=== PATIENT | female | born 1965 | race Caucasian/White ===

== ENCOUNTER 2019-04-26 03:46 | Inpatient (IN) ==
[2019-04-19 09:47] LABS: BASO# 0.03 X1000 (0.0-0.2); BASO% 0.5 % (0.0-0.8); EOS# 0.09 X1000 (0.0-0.7); EOS% 1.5 % (0.0-10.0); HEMATOCRIT 43.6 % (37.0-47.0); HEMOGLOBIN 14.6 g/dL (12.0-16.0); IMM GRAN# 0.02 X1000 (0.0-0.04); IMM GRAN% 0.3 % (0.0-0.5); LYMPH# 1.91 X1000 (1.2-3.4); LYMPH% 31.1 % (20.5-51.1); MCH 31.1 PG (27-31); MCHC 33.5 g/dL (33-37); MONO% 8.1 % (1.7-9.3); MPV 10.7 FL (7.4-10.4); NEUT# 3.59 X1000 (1.4-6.5); NEUT% 58.5 % (42.2-75.2); PLT 226 X1000 (130-400); RBC 4.69 XMIL (4.2-5.4); WBC 6.14 X1000 (4.8-10.8)
[2019-04-26] MEDS ORDERED: REGLAN ONE (05:58)
[2019-04-26] MEDS ORDERED: LR 1,000 ML ONE ×2 (05:58→09:40)
[2019-04-26] MEDS ORDERED: PEPCID ONE (05:58)
[2019-04-26] MEDS ORDERED: KEFZOL 1 GM/D5W 1 GM/50 ML IVPB ONE (05:58)
[2019-04-26] MEDS ORDERED: FENTANYL ONE (06:06)
[2019-04-26] MEDS ORDERED: DIPRIVAN 1% ONE (06:06)
[2019-04-26] MEDS ORDERED: SODIUM CHLORIDE 0.9% 10 ML ONE ×2 (06:08→06:45)
[2019-04-26] MEDS ORDERED: NORCURON ONE ×2 (06:08→08:21)
[2019-04-26] MEDS ORDERED: XYLOCAINE-MPF 2% ONE (06:08)
[2019-04-26] MEDS ORDERED: QUELICIN (DOSE) ONE (06:08)
[2019-04-26] MEDS ORDERED: VERSED ONE (06:40)
[2019-04-26] MEDS ORDERED: ROBINUL ONE ×2 (06:42→08:50)
[2019-04-26] MEDS ORDERED: MARCAINE 0.25% ONE (06:44)
[2019-04-26] MEDS ORDERED: EXPAREL 1.3% ONE (06:45)
[2019-04-26] MEDS ORDERED: ZOFRAN ONE (08:48)
[2019-04-26] MEDS ORDERED: EPHEDRINE ONE (08:48)
[2019-04-26] MEDS ORDERED: DECADRON ONE (08:48)
[2019-04-26] MEDS ORDERED: NEOSTIGMINE ONE ×2 (08:52→09:07)
[2019-04-26 08:53] LABS: URINE SOURCE CATH
[2019-04-26 08:55] LABS: BILIRUBIN URINE NEGATIVE (NEGATIVE); BLOOD URINE NEGATIVE (NEGATIVE); COLOR YELLOW; GLUCOSE URINE NEGATIVE (NEGATIVE); KETONE URINE NEGATIVE (NEGATIVE); LEUKOCYTES URINE NEGATIVE (NEGATIVE); NITRITE URINE NEGATIVE (NEGATIVE); PROTEIN URINE NEGATIVE (NEGATIVE); SP GRAVITY URINE 1.007; TURBIDITY URINE CLEAR (CLEAR); UR EPITHELIAL CELLS <10 /HPF (<10); URINE BACTERIA NEGATIVE /HPF; URINE RBC <10 /HPF (<10); URINE WBC <10 /HPF (<10); UROBILINOGEN URINE NORMAL (NORMAL)
[2019-04-26] MEDS: DILAUDID ONE ×4 (09:43→10:19)
--- NOTE | 2019-04-26 10:03 | OPERATIVE NOTE ---
PROCEDURE DATE: 04/26/2019 PREOPERATIVE DIAGNOSIS: Distal pancreatic mass. POSTOPERATIVE DIAGNOSIS: Distal pancreatic mass. PROCEDURES PERFORMED: 1. Open distal pancreatectomy. 2. Open splenectomy. SURGEON: Aiden Jimenez M.D. SYNTHETIC CHEMIST: Dr. Ball. Dr. Ball assisted with the entirety of the case. His presence was crucial to completion of the case. ANESTHESIA: General endotracheal. INTRAOPERATIVE FINDINGS: Lesion noted in the tail of the pancreas, very close to the hilum of the spleen, intimately connected to the splenic artery and splenic vein, not amenable to spleen- sparing pancreatectomy. COMPLICATIONS: None at the time of this dictation. EBL: 900 mL. SPECIMENS REMOVED: Distal pancreas and spleen. DRAINS: A 10 flat STARR x2. BRIEF HISTORY: A 53-year-old female who presented with CT scan that showed distal pancreatic mass. We offered her several options, including endoscopic ultrasound with biopsy, transfer to [facility] for surgery, or definitive surgery here. She elected to go with definitive surgery here. The risks, benefits, and alternatives were discussed, risks including, but not limited to bleeding, infection, risk of need for further resections, risk for pancreatic duct leak, risk for splenectomy were discussed. She voiced understanding. We did get her the post- splenectomy vaccines 2 weeks prior to the surgery, just in case we had to remove the spleen. She tolerated those well. She wanted to proceed with the procedure. DESCRIPTION OF PROCEDURE: After informed consent was obtained, the patient was brought to the operative theatre and transferred to the operating table, placed in the supine position. General endotracheal anesthesia was then performed without complication. A formal time- out was then performed, confirming the patient and procedure. All were in agreement. Anesthesia did a TAP block without complications. We then prepped and draped the abdomen in a sterile fashion. After the time-out, we made a standard midline incision in the upper aspect of the abdomen to enter into the abdomen. Upon entering, we identified the stomach and the colon. We did not identify any other lesions or masses in the abdomen by direct visualization or palpation. We made a window to enter into the lesser sac, and entered into the lesser sac with electrocautery. We identified the spleen and the pancreas. We identified the lesion. We started first by mobilizing the spleen medially by taking down the attachments both with a combination of blunt dissection and electrocautery. We got to the hilum. We then started taking down the short gastrics with the LigaSure. We mobilized the short gastrics, and completely transected them all the way up to the stomach. We then found an area on the body of the pancreas that was 5 cm away in vivo from the edge of the mass. We started making a window under the pancreas, using a combination of right angle and blunt dissection. We placed a vessel loop around it. We then isolated the splenic artery, doubly tied it, and ligated it. We then isolated the splenic vein, and also doubly tied and ligated it. We then used a TA stapler with 60 load with thick load across the pancreas itself, transected it. We did not easily see the pancreatic duct, but in the area we thought it most likely was, we placed U-stitches with silk. We then continued the blunt dissection posteriorly to the pancreas, all the way down to the spleen. There were some fibrotic attachments to the retroperitoneum. We took some of the retroperitoneal fat with it. We did mobilize it off the splenic flexure of the colon and off the kidney. It did not look like we had any injury to those structures. We mobilized it fully until we freed it up, and then passed it off to Pathology. I updated Pathology about the findings noted on in vivo. We then placed several gauze in the abdomen, and waited. We irrigated out the abdomen copiously, waited, and packed the abdomen, and did not see any active bleeding. We then placed two drains, one from the left upper quadrant, going straight down to the pancreas, the other one in the right upper quadrant, going under the stomach and by the pancreas. Both were secured in place in the standard fashion. We then closed the abdomen after irrigating it thoroughly, closed it with a running loop PDS starting on either side. We then closed the skin with a running Monocryl. The patient tolerated the procedure well and will be transferred back to recovery room and then to the floor. cc: MD JOSE RAMON Gaffney
[2019-04-26] MEDS: NORCO-5 PO PRN ×3 (12:36→21:36)
[2019-04-26] MEDS: ZOFRAN IV PRN ×2 (12:46→21:36)
[2019-04-26] MEDS: LR 1,000 ML IV SCH (12:51)
[2019-04-26] MEDS: PERIDEX MT SCH (21:36)
[2019-04-27] MEDS: ZOFRAN IV PRN ×6 (01:13→23:46)
[2019-04-27] MEDS: NORCO-5 PO PRN ×6 (01:13→23:45)
[2019-04-27] MEDS: HEPARIN SUBQ SCH ×3 (05:51→23:46)
[2019-04-27] MEDS: PROTONIX PO SCH ×2 (05:53→08:07)
[2019-04-27] MEDS: PERIDEX MT SCH ×2 (08:10→23:45)
[2019-04-27] MEDS: LR 1,000 ML IV SCH (08:10)
[2019-04-27] MEDS: THYROID PO SCH (08:11)
[2019-04-28] MEDS: PROTONIX PO SCH ×2 (04:57→06:28)
[2019-04-28] MEDS: ZOFRAN IV PRN ×4 (04:57→19:40)
[2019-04-28] MEDS: NORCO-5 PO PRN ×3 (04:57→19:40)
[2019-04-28] MEDS: HEPARIN SUBQ SCH ×2 (09:50→17:42)
[2019-04-28] MEDS: PERIDEX MT SCH (09:50)
[2019-04-28] MEDS: THYROID PO SCH (09:50)
[2019-04-28] MEDS: LR 1,000 ML IV SCH (09:51)
[2019-04-29] MEDS: NORCO-5 PO PRN ×4 (00:37→22:12)
[2019-04-29] MEDS: ZOFRAN IV PRN (00:38)
[2019-04-29] MEDS: PROTONIX PO SCH (06:08)
[2019-04-29] MEDS: LR 1,000 ML IV SCH (09:22)
[2019-04-29] MEDS: PERIDEX MT SCH ×3 (09:23→22:12)
[2019-04-29] MEDS: HEPARIN SUBQ SCH ×4 (09:23→23:05)
[2019-04-29] MEDS: THYROID PO SCH (09:24)
[2019-04-29] MEDS ORDERED: THYROID PO ONE (11:30)
--- NOTE | 2019-04-29 11:46 | GENERAL SURGERY PROGRESS NOTE ---
DATE: 04/29/2019 SUBJECTIVE: The patient seems to be doing okay. She is not sick to her stomach. She does complain of some back pain, but overall is doing fine. She has been ambulating. OBJECTIVE: Vital Signs: The patient is currently afebrile. Her vital signs are stable. General: No acute distress. Cardiovascular: Regular rate and rhythm. Lungs: Grossly clear. Abdomen: Soft. Appropriately tender. STARR drain is in place with minimal serosanguineous output. ASSESSMENT AND PLAN: A 53-year-old female, currently postoperative day #3 from distal pancreatectomy. Postoperative state. At this time, will advance to a regular diet Will actually check Kaden-Finley drains for amylase levels, and will monitor her closely. I think she is getting close to being able to be discharged. cc: Aiden Jimenez MD MTDD
[2019-04-29 12:04] LABS: BODY FLUID SOURCE JP DRAIN FLUID
[2019-04-29 12:21] LABS: AMYLASE BODY FLUID 1139 U/L
[2019-04-29 12:34] LABS: AMYLASE BODY FLUID 1719 U/L
--- NOTE | 2019-04-29 15:45 | GENERAL SURGERY PROGRESS NOTE ---
DATE: 04/27/2019 SUBJECTIVE: The patient seems to be doing okay. She is a little nauseated. OBJECTIVE: Vital Signs: The patient is currently afebrile. Her vital signs are stable. General: No acute distress. Cardiovascular: Regular rate and rhythm. Lungs: Clear. Abdomen: Soft, appropriately tender. STARR drain is in place with serosanguineous output. ASSESSMENT/PLAN: A 53-year-old female currently postoperative day number 1 from an open distal pancreatectomy and splenectomy. Postoperative state: At this time the patient seems to be doing okay. She is a little nauseated, so we will just keep her on her diet. She is on heparin and pain medicine and Protonix. Once she has less nausea, we will consider advancing her diet. cc: Aiden Jimenez MD
--- NOTE | 2019-04-29 16:20 | OPERATIVE NOTE ---
PROCEDURE DATE: 04/26/2019 Please note, previous attempt of this was made but during the transition over the new software it seems like it has been corrupted. PREOP DIAGNOSIS: Distal pancreatic mass. POSTOP DIAGNOSIS: Distal pancreatic mass. PROCEDURE: 1. Open distal pancreatectomy. 2. Open splenectomy. SURGEON: Aiden Jimenez MD. PAINT MIXER MACHINE: Dr. Ball. Dr. Ball assisted with the entirety of the case. His presence was crucial to completion the case. ANESTHESIA: General endotracheal. FINDINGS: Lesion noted in the tail of the pancreas very close to the hilum the spleen intimately connected to the splenic artery, splenic vein, not amenable to spleen sparing pancreatectomy. COMPLICATIONS: None at the time this dictation. ESTIMATED BLOOD LOSS: 900 mL. SPECIMENS REMOVED: Distal pancreas and spleen. DRAINS: Two flat STARR drains. BRIEF HISTORY: A 53-year-old female presenting with CT scan showed distal pancreatic mass. We offered her several options including endoscopic ultrasound with biopsy, transfer to [facility] for surgery and definitive surgery here. She elected to have definitive surgery here. Risks, benefits, alternatives of the procedure were discussed. Risks include but not limited to bleeding, infection, risk of need for further resection, risk of pancreatic duct leak, risk of splenectomy were discussed. She voiced understanding. We did get her post splenectomy vaccines 2 weeks prior to the surgery just in case we had to remove the spleen. She tolerated these well. She wanted proceed with surgery. DESCRIPTION OF PROCEDURE: After informed consent was obtained patient brought to the operative theatre, transferred operative table placed supine position. General endotracheal anesthesia was then performed without complication. A formal time-out was then performed confirming patient, date, procedure. All were in agreement. Anesthesia did a TAP block without complication. We then prepped and draped the abdomen in sterile fashion. After the time-out we made a standard midline incision in the upper aspect of the abdomen to enter into the abdomen. Upon entering the abdomen we identified the stomach, the colon. We felt over the liver did not find any masses identifying the carcinomatosis, did not find any other pathology. We made a window to enter into the lesser sac and entered into the lesser sac with electrocautery, identified the spleen, the pancreas, we identified the lesion. We started 1st by mobilizing the spleen medially by taking down the attachments both with combination of blunt dissection, electrocautery. We got to the hilum. We then started taking down the short gastrics with the LigaSure. We mobilized the short gastrics and complete transected them all the way to the hiatus. We then found the area in the body of the pancreas which is least 5 cm away in vivo from the edge of the mass. We started making a window into the pancreas using combination of a right angle for blunt dissection and electrocautery. We placed a vessel loop around it to isolate it. We then isolated the splenic artery, doubly tied it and ligated it. We then isolated the splenic vein and doubly tied and ligated it also. We used a TA stapler at 60 load with thick load across the pancreas itself and transected it. We did not easily identify the pancreatic duct but in the area we thought it most likely was we placed U-stitches with silk. We then continued to bluntly dissect the posterior aspect of the pancreas all the way down to the spleen. There was some fibrotic attachments to the retroperitoneum. We did take some retroperitoneal fat with it. We did mobilize it off the splenic flexure in the colon and off the kidney. We did look, it did not look like we had any injury to the structures. We fully mobilized until we freed it up then passed off to pathology, updated pathology about the findings noted on in vivo. We then placed several gauze the abdomen waited. We irrigated out the abdomen copiously, waited and packed the abdomen, did not see any active bleeding. We then placed 2 drains, 1 from the left upper quadrant straight down the pancreas, the other 1 in the right upper quadrant going under the stomach and to the pancreas. Both were secured in place in the standard fashion. We then closed the abdomen after removing all packing and closed it with a running loop PDS started on either side. We then closed the skin with a running Monocryl. The patient tolerated the procedure well, transferred back to recovery room and then to the floor. The family was updated. cc: Aiden Jimenez MD
[2019-04-30] MEDS: NORCO-5 PO PRN ×4 (01:45→22:02)
[2019-04-30] MEDS: THYROID PO SCH (06:29)
[2019-04-30] MEDS: PROTONIX PO SCH (06:29)
[2019-04-30] MEDS: HEPARIN SUBQ SCH ×2 (09:29→15:29)
[2019-04-30] MEDS: PERIDEX MT SCH ×2 (09:29→20:49)
--- NOTE | 2019-04-30 12:52 | GENERAL SURGERY PROGRESS NOTE ---
DATE: 04/28/2019 SUBJECTIVE: The patient seems to be doing okay. OBJECTIVE: Vital signs: The patient is currently afebrile. Her vital signs are stable. General exam: No acute distress. Cardiovascular: Regular rate and rhythm. Lungs are clear. Abdomen soft, appropriately tender. STARR drains in place with serosanguineous output and very minimal. ASSESSMENT AND PLAN: A 53-year-old female postop day #2 from distal pancreatectomy and splenectomy. Postoperative state at this time: Will advance to a full liquid diet. Will see how she does. Discussed with her that if she gets sick to back off her diet. She is on appropriate prophylaxis at this point. Will continue to monitor. Pathology is pending. cc: Aiden Jimenez MD MTDD
--- NOTE | 2019-04-30 13:37 | GENERAL SURGERY PROGRESS NOTE ---
DATE: 04/30/2019 Patient is currently postoperative day #4 from distal pancreatectomy. We did check her Kaden- Finley drains and the amylase was over 1000, although her output is pretty minimal. The characteristic of the fluid has changed slightly to maybe be more suggestive of pancreatic leak, but if it is, it is a very small pancreatic leak with less than 30 a day recorded out. At this point, we will keep her on a regular diet. We will watch her over the weekend and see what her Kaden-Finley drain output does. She will likely go home this weekend with her Kaden-Finley drains in place. Pathology is pending. cc: Aiden Jimenez MD
[2019-05-01] MEDS: NORCO-5 PO PRN ×3 (02:43→22:04)
[2019-05-01] MEDS: HEPARIN SUBQ SCH ×3 (06:07→21:58)
[2019-05-01] MEDS: THYROID PO SCH (06:08)
[2019-05-01] MEDS: PROTONIX PO SCH (06:08)
[2019-05-01] MEDS: PERIDEX MT SCH ×2 (09:44→21:58)
[2019-05-01] MEDS: MIRALAX PO SCH (10:33)
--- NOTE | 2019-05-01 18:44 | GENERAL SURGERY PROGRESS NOTE ---
DATE: 05/01/2019 SUBJECTIVE: Doing well. Having bowel function. No fevers. No tachycardia. Drain output appears to be 30 mL over the last 24 hours out of each drain thereabout. It is consistent with pancreas fluid. She is tolerating a regular diet with Ensure supplementation. She is on KVO fluids and prophylactic Lovenox. We will continue current management. Going forward, plan for maybe home tomorrow. I will let her shower today. cc: MD Aiden Santoyo MD
[2019-05-02] MEDS: NORCO-5 PO PRN (03:23)
[2019-05-02] MEDS: HEPARIN SUBQ SCH ×3 (06:45→22:03)
[2019-05-02] MEDS: PROTONIX PO SCH (06:45)
[2019-05-02] MEDS: THYROID PO SCH (06:45)
[2019-05-02] MEDS: PERIDEX MT SCH ×2 (09:07→22:03)
[2019-05-02] MEDS: MIRALAX PO SCH (09:08)
--- NOTE | 2019-05-02 13:51 | GENERAL SURGERY PROGRESS NOTE ---
DATE: 05/02/2019 SUBJECTIVE: She is packing her bags. She is in street clothes this morning. No fevers. No tachycardia. Bowels are functioning. Tolerating a diet. No pain. No fevers. OBJECTIVE: Blood pressure 116/74. Abdomen is soft, nontender, nondistended. ASSESSMENT AND PLAN: A 53-year-old female status post distal pancreatectomy. She does have some fluid that appears to be pancreatic in nature coming from her drains, but a very low volume. We will plan on letting her go home tomorrow to follow up with Dr. Jimenez this week for possible drain removal. cc: MD Aiden Santoyo MD
[2019-05-03] MEDS: THYROID PO SCH (06:23)
[2019-05-03] MEDS: HEPARIN SUBQ SCH (06:24)
[2019-05-03] MEDS: PROTONIX PO SCH (06:24)
--- NOTE | 2019-05-03 06:29 | DISCHARGE SUMMARY ---
ADMISSION DATE: 04/26/2019 DISCHARGE DATE: 05/03/2019 ADMITTING DIAGNOSIS: Pancreatic mass. DISCHARGE DIAGNOSIS: Status post open distal pancreatectomy and splenectomy. ADMITTING PHYSICIAN: Aiden Jimenez MD CONSULTATIONS: None. PROCEDURES: On 04/26/2019, patient underwent open distal pancreatectomy with open splenectomy. BRIEF HISTORY AND COURSE OF STAY: Patient is a 53-year-old female who was found incidentally to have a pancreatic mass. We discussed options. She wanted it removed. She was admitted, and underwent previously described procedure. It should be noted that she did get her post splenectomy vaccines 2 weeks prior to the procedure. Her postoperative course was initially uncomplicated. We left drains given the distal pancreatectomy. She was progressed over several days to a regular diet. She was having return of bowel function. We did note that she started having a small pancreatic duct leak, but is less than 30 mL out per day. She was advanced to a regular diet and tolerated it well. On the day of discharge, she was up and moving. Pain controlled. Up and ambulating without fever or discomfort. It was felt that she would be safe to be discharged home. We did give her instructions on STARR drain care. At this point, we will monitor her Kaden-Finley drain output as she gets up and mobilizes at home. If she still has continued output, may need to consider ERCP by the GI doctors to probably put a pancreatic stent. Otherwise, we will continue to monitor. DISPOSITION: Home. DISCHARGE CONDITION: Stable. HOME MEDICATIONS: The patient was given prescription for tramadol. FOLLOW-UP: Patient told to follow up with her primary care physician and myself. cc: Aiden Jimenez MD [facility]
--- NOTE | 2019-05-03 07:00 | GENERAL SURGERY PROGRESS NOTE ---
DATE: 05/03/2019 SUBJECTIVE: Patient seems to be doing well. No major issues. OBJECTIVE: Vital Signs: The patient is currently afebrile. Her vital signs are stable. General Examination: No acute distress. Cardiovascular: Regular rate and rhythm. Lungs: Grossly clear. Abdomen: Soft. Appropriately tender. Incision healing well. STARR drain is in place. Left side has more output than the right side and it seems to be more like pancreatic juice, although it is less than 30 mL out per day. ASSESSMENT AND PLAN: A 53-year-old female currently postoperative day #7 from open distal pancreatectomy and splenectomy. Postoperative state. At this time, the patient seems to be doing well. We will plan on discharge. cc: Aiden Jimenez MD
[2019-05-03 07:31] VITALS: BP 123/65
[2019-05-03] MEDS: MIRALAX PO SCH (08:46)
[2019-05-03] MEDS: PERIDEX MT SCH (08:46)
== END 2019-05-03 09:30 | disposition home or self-care (01) | DRG 406 ==
LOC: SURHOLD 03:46 → 4N 07:29
PROVIDERS: ADMIT Surgery; ATTEND Surgery
CPT/HCPCS: 81001; 82150; 85025; 86850; 86900; 86901; 86920; 88309; 88313; 94761; A9270; C9290; J0330; J0690; J1100; J1170; J1644; J2250; J2405; J3010; J7120; S0020

== ENCOUNTER 2019-05-15 22:20 | Inpatient (IN) ==
[2019-05-15 23:00] LABS: URINE SOURCE CLEAN CATCH
[2019-05-15 23:20] LABS: BILIRUBIN URINE NEGATIVE (NEGATIVE); BLOOD URINE NEGATIVE (NEGATIVE); COLOR YELLOW; GLUCOSE URINE NEGATIVE (NEGATIVE); KETONE URINE NEGATIVE (NEGATIVE); LEUKOCYTES URINE NEGATIVE (NEGATIVE); NITRITE URINE NEGATIVE (NEGATIVE); PROTEIN URINE NEGATIVE (NEGATIVE); SP GRAVITY URINE 1.014; TURBIDITY URINE CLEAR (CLEAR); UROBILINOGEN URINE NORMAL (NORMAL)
[2019-05-15 23:21] LABS: UR EPITHELIAL CELLS <10 /HPF (<10); URINE BACTERIA 1+ /HPF; URINE RBC <10 /HPF (<10); URINE WBC <10 /HPF (<10)
[2019-05-15 23:25] LABS: BASO# 0.04 X1000 (0.0-0.2); BASO% 0.2 % (0.0-0.8); EOS# 0.11 X1000 (0.0-0.7); EOS% 0.5 % (0.0-10.0); HEMATOCRIT 33.9 % (37.0-47.0); HEMOGLOBIN 11.1 g/dL (12.0-16.0); IMM GRAN# 0.06 X1000 (0.0-0.04); IMM GRAN% 0.3 % (0.0-0.5); LYMPH# 2.41 X1000 (1.2-3.4); LYMPH% 11.5 % (20.5-51.1); MCHC 32.7 g/dL (33-37); MCV 91.6 FL (81-99); MONO# 2.39 X1000 (0.11-0.59); MONO% 11.4 % (1.7-9.3); MPV 11.5 FL (7.4-10.4); NEUT# 15.94 X1000 (1.4-6.5); NEUT% 76.1 % (42.2-75.2); PLT 463 X1000 (130-400); RDW 13.7 % (11.5-14.5); WBC 20.95 X1000 (4.8-10.8)
[2019-05-15 23:27] LABS: AGAP 14; ALB/GLOB RATIO 1.1; ALBUMIN 3.7 g/dL (3.5-5.0); ALKALINE PHOSPHATASE 102 U/L (32-104); BUN 10 mg/dL (8-22); CHLORIDE 98 mmol/L (98-107); COSMO 271; CREATININE 0.8 mg/dL (0.5-0.9); ESTIMATED GFR > 60; GLUCOSE 129 mg/dL (70-104); GOT 29 U/L (10-30); GPT 28 U/L (10-36); POTASSIUM 4.1 mmol/L (3.5-5.1); SODIUM 135 mmol/L (136-145); TCO2 23 mmol/L (25-35); TOTAL BILIRUBIN < 0.15 mg/dL (0.20-1.00)
[2019-05-16] MEDS ORDERED: NS 1,000 ML IV ONE ×4 (00:12→03:00)
[2019-05-16] MEDS ORDERED: ZOSYN 4.5 GM in NS 100 ML IV ONE (01:25)
[2019-05-16] MEDS ORDERED: DILAUDID IM PRN (01:36)
[2019-05-16] MEDS ORDERED: ZOFRAN IV PRN (01:36)
[2019-05-16] MEDS ORDERED: THYROID PO ONE (01:45)
--- NOTE | 2019-05-16 07:35 | Diag Imaging Result Doc PS360 ---
EXAM: CHEST-2 VIEWS 05/16/2019 HISTORY: abdominal pain TECHNIQUE: PA and lateral chest COMMENT: There are platelike atelectatic changes present posteriorly on the right. There may be some platelike atelectasis in the left lower lobe as well. There are no previous studies available for comparison. The heart size and pulmonary vascularity are within normal limits. IMPRESSION: Bibasilar atelectasis. Electronically signed by Isidro Beaulieu 05/16/2019 7:33 AM
[2019-05-16] MEDS: ZOSYN 3.375 GM in NS 50 ML IV SCH ×3 (08:12→20:50)
[2019-05-16] MEDS ORDERED: DILAUDID IV PRN (08:15)
[2019-05-16 08:17] LABS: BASO# 0.04 X1000 (0.0-0.2); BASO% 0.2 % (0.0-0.8); EOS# 0.07 X1000 (0.0-0.7); EOS% 0.4 % (0.0-10.0); HEMATOCRIT 30.4 % (37.0-47.0); IMM GRAN# 0.05 X1000 (0.0-0.04); IMM GRAN% 0.3 % (0.0-0.5); LYMPH# 1.57 X1000 (1.2-3.4); MCH 30.6 PG (27-31); MCHC 32.9 g/dL (33-37); MONO# 2.13 X1000 (0.11-0.59); MONO% 12.2 % (1.7-9.3); MPV 11.4 FL (7.4-10.4); NEUT# 13.57 X1000 (1.4-6.5); NEUT% 77.9 % (42.2-75.2); PLT 435 X1000 (130-400); RBC 3.27 XMIL (4.2-5.4); RDW 13.7 % (11.5-14.5); WBC 17.43 X1000 (4.8-10.8)
--- NOTE | 2019-05-16 08:17 | Diag Imaging Result Doc PS360 ---
EXAM: CT ABD/PELVIS W/IV CONT ONLY 05/16/2019 HISTORY: abdominal pain/ post op TECHNIQUE: This exam was performed using automated exposure control, adjustment of mA or kV according to patient size, and/or use of iterative reconstruction technique. COMMENT: There are platelike opacities present in both lung bases consistent with subsegmental atelectasis. There are no previous studies available for comparison. The abdominal aorta is not distended. The mesenteric and renal arteries are patent. There is a surgical drain posterior to the body of the stomach exiting in the left midabdomen anteriorly. There is a moderately circumscribed collection just below the level of the drain containing fluid and fat density as well as some air bubble superiorly and extending at least 17.6 cm in superior-inferior dimension with an axial dimension of over 5.8 cm. This may represent a combination of fat necrosis, hematoma, seroma or even abscess although the latter would appear to be less likely. There is no evidence of nephrolithiasis hydronephrosis or renal mass. The gallbladder is apparently clear. The liver is unremarkable. There has been resection of the tail of the pancreas and the spleen. There is some fluid in the left upper perinephric space. There is a fairly large amount of stool present in the colon. Pelvis: The appendix is normal in appearance. There is a fairly large amount of stool in the rectosigmoid colon. There is a small amount of fluid in the cul-de-sac which is slightly dense measuring over 19 Hounsfield units. This may contain some blood. The urinary bladder is not distended. There has been previous hysterectomy. There are no masses. The regional skeleton appears to be intact. IMPRESSION: Postsurgical changes as described above. Partially circumscribed fluid and fat collection extending from the left upper quadrant to the lower abdomen and upper pelvis slightly to the right of the midline. This may or may not be drained through the surgical drain described above. The differential diagnosis would include hematoma, seroma, or abscess plus minus fat necrosis. Electronically signed by Isidro Beaulieu 05/16/2019 8:14 AM
[2019-05-16 08:25] LABS: INR 1.13; PROTIME 15.4 Seconds (11.0-16.0); PTT 32.1 Seconds (22.3-41.8)
--- NOTE | 2019-05-16 08:26 | HISTORY AND PHYSICAL ---
HISTORY OF PRESENT ILLNESS: Ms. 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 Six days ago, she had seen Dr. Jimenez who removed her right-sided drain and took her left- sided drain off suction. The left-sided drain is the one that had been draining some pancreatic fluid. Yesterday, she noticed some purulence around the drain. She put it back on suction herself and some cloudy fluid evacuated. She came in because of the change. She also was noted to have some low-grade fever. She denies any chills. Her bowels have been slow to move as well. Upon admission, she did have some fever. Her CT scan showed a low-density area in the omentum consistent with possible cavity or abscess. Her white count was elevated. MEDICATIONS: Her medications at home include thyroid medication 30 mg daily and Ultram. ALLERGIES: She has no known drug allergies. FAMILY HISTORY: Pertinent for breast cancer in her mother, colon cancer and heart disease in her father. SOCIAL HISTORY: She is a social drinker. She denies tobacco use. She used to smoke but quit last year. REVIEW OF SYSTEMS: Pertinent for the low-grade fever and some constipation with occasional diarrhea. All other subsystems are negative. PHYSICAL EXAMINATION: VITAL SIGNS: Her temperature is 99.7 degrees, heart rate 88, blood pressure 104/57, respiratory rate is 22. NECK: No cervical adenopathy. RESPIRATORY: Bilateral breath sounds. HEART: Regular rate and rhythm. ABDOMEN: Mildly tender in the epigastrium. The drain is noted coming up the left upper quadrant, has purulent drainage around it and some purulent fluid within the drain itself. EXTREMITIES: No peripheral edema. NEUROLOGIC: She is awake and alert. DIAGNOSTICS/LABS: White count is 20,900, hemoglobin 11.1. Chemistry is satisfactory. ASSESSMENT: Probable omental phlegmon. There appears to be a pancreatic leak. We will put her on Zosyn, culture her fluid, and she may ultimately require percutaneous drainage of this area in the omentum. We will notify Dr. Jimenez when he returns tomorrow. cc: Baldev Mart MD
[2019-05-16 08:37] LABS: AGAP 10; ALB/GLOB RATIO 1.4; ALBUMIN 3.1 g/dL (3.5-5.0); ALKALINE PHOSPHATASE 90 U/L (32-104); BUN 7 mg/dL (8-22); CHLORIDE 105 mmol/L (98-107); CK PROFILE 29 U/L (24-173); COSMO 274; CREATININE 0.7 mg/dL (0.5-0.9); ESTIMATED GFR > 60; GLUCOSE 141 mg/dL (70-104); GOT 21 U/L (10-30); GPT 25 U/L (10-36); POTASSIUM 4.1 mmol/L (3.5-5.1); SODIUM 137 mmol/L (136-145); TCO2 22 mmol/L (25-35); TOTAL BILIRUBIN 0.54 mg/dL (0.20-1.00); TOTAL PROTEIN 5.3 g/dL (6.3-8.3)
[2019-05-16] MEDS: NS 1,000 ML IV SCH (19:04)
[2019-05-16] MEDS: TYLENOL PO PRN (20:50)
[2019-05-17] MEDS: ZOSYN 3.375 GM in NS 50 ML IV SCH ×4 (02:46→20:18)
[2019-05-17] MEDS: NS 1,000 ML IV SCH ×3 (02:49→14:41)
[2019-05-17 05:51] LABS: BASO# 0.02 X1000 (0.0-0.2); BASO% 0.1 % (0.0-0.8); EOS# 0.17 X1000 (0.0-0.7); EOS% 1.1 % (0.0-10.0); HEMATOCRIT 29.6 % (37.0-47.0); HEMOGLOBIN 9.3 g/dL (12.0-16.0); LYMPH# 1.31 X1000 (1.2-3.4); LYMPH% 8.6 % (20.5-51.1); MCH 30.5 PG (27-31); MCHC 31.4 g/dL (33-37); MONO# 2.35 X1000 (0.11-0.59); MONO% 15.3 % (1.7-9.3); MPV 11.4 FL (7.4-10.4); NEUT# 11.46 X1000 (1.4-6.5); NEUT% 74.9 % (42.2-75.2); PLT 418 X1000 (130-400); RBC 3.05 XMIL (4.2-5.4); RDW 13.9 % (11.5-14.5); WBC 15.31 X1000 (4.8-10.8)
[2019-05-17 07:46] LABS: AMYLASE BODY FLUID 168 U/L
--- NOTE | 2019-05-17 07:52 | GENERAL SURGERY PROGRESS NOTE ---
DATE: 05/17/2019 SUBJECTIVE: The patient seems to be doing a little bit better. STARR drain has cloudy fluid, which may be pancreatic enzymes or phlegmon draining from omentum. OBJECTIVE: Vital Signs: The patient is currently afebrile. Her vital signs are stable. General: No acute distress. Cardiovascular: Regular rate and rhythm. Lungs: Grossly clear. Abdomen: Soft. Some tenderness around STARR drain. Incisions healing. There is no active drainage around the STARR at this time. STARR drain has murky fluid in it. ASSESSMENT AND PLAN: A 53-year-old female status post distal pancreatectomy and splenectomy, now with possible intra-abdominal phlegmon and pancreatic leak. Postoperative state. At this time, will check fluid for amylase. Will keep her on a clear liquid diet. Will discuss with Radiology if they think they can potentially drain or aspirate some of this fluid. It may be related to just omental phlegmon from a pancreatic leak. If so, will monitor the output from the Kaden-Finley drain, and may consider getting Gastroenterology to do an endoscopic retrograde cholangiopancreatography and pancreatic duct stent. I am unsure if this fluid is well organized enough to get a drain easily into it, but will discuss with Radiology. Otherwise, keep her on antibiotics, monitor her closely, and monitor her vital signs. cc: MD Baldev Gaffney MD
[2019-05-17] MEDS ORDERED: THYROID PO ONE (14:23)
[2019-05-17] MEDS: MIRALAX PO SCH ×2 (14:42→23:51)
[2019-05-17] MEDS ORDERED: ZOSYN ONE (16:15)
[2019-05-18] MEDS: ZOSYN 3.375 GM in NS 50 ML IV SCH ×3 (02:36→10:56)
[2019-05-18] MEDS: NS 1,000 ML IV SCH ×3 (02:36→16:59)
[2019-05-18] MEDS ORDERED: VANCOMYCIN IV PER PHARMACY MISC SCH (05:30)
[2019-05-18] MEDS ORDERED: LR 1,000 ML IV ONE (05:42)
[2019-05-18] MEDS: THYROID PO SCH ×2 (06:08→08:44)
[2019-05-18] MEDS: VANCOMYCIN 2 GM in NS 500 ML IV ONE ×2 (07:15→10:49)
[2019-05-18] MEDS ORDERED: ZOSYN ONE (07:16)
--- NOTE | 2019-05-18 08:38 | GENERAL SURGERY PROGRESS NOTE ---
DATE: 05/18/2019 SUBJECTIVE: Patient doing okay. She did have a little episode of feeling weak yesterday, but otherwise has been doing okay. OBJECTIVE: Vital Signs: The patient is currently afebrile. Her vital signs have been stable. General: No acute distress. Cardiovascular: Regular rate and rhythm. Lungs: Grossly clear. Abdomen: Soft, appropriately tender. STARR drain in place with 50 mL recorded out, looks like purulence. LABORATORY DATA: White blood cell count yesterday was 15, hematocrit 29, platelet count 418,000. Amylase from the fluid was 168, suggesting that it is not a pancreatic leak. ASSESSMENT AND PLAN: A 53-year-old female status post distal pancreatectomy and splenectomy, now with possible phlegmon. Status post distal pancreatectomy and splenectomy. At this time, the patient's white blood cell count is decreasing down to 15, which may be normal for her status post splenectomy. Her Kaden- Finley drain does not seem to suggest a pancreatic leak. At this time, will increase her diet, increase ambulation. She does have gram-positive cocci growing from cultures from the Kaden- Finley, so will add vancomycin with pharmacy to dose. Will keep her on Zosyn right now until the official cultures come back fully. Will give her a liter bolus to make her feel better. Will also send her Kaden-Finley drain for triglycerides to rule out the possibility of a lymphatic leak, although we are far away from the thoracic duct. Otherwise, continue supportive care. cc: Aiden Jimenez MD MTDAxel
[2019-05-18] MEDS: MIRALAX PO SCH ×2 (08:44→20:08)
[2019-05-19] MEDS: NS 1,000 ML IV SCH ×3 (02:42→18:47)
[2019-05-19] MEDS: VANCOMYCIN 1,650 MG in NS 250 ML IV SCH (05:49)
--- NOTE | 2019-05-19 08:56 | GENERAL SURGERY PROGRESS NOTE ---
DATE: 05/19/2019 SUBJECTIVE: The patient seems to be doing okay. She is feeling better today. She was moved to a private room secondary to MRSA growing from her drain. OBJECTIVE: Vital Signs: The patient is currently afebrile. Her vital signs are stable. General: No acute distress. Cardiovascular: Regular rate and rhythm. Lungs: Grossly clear. Abdomen: Soft, less tender. Incision healing well. STARR drain with what looks like some purulence draining, looks thinner though overall. LABORATORY DATA: None this morning. MICROBIOLOGY: Microbiology shows gram-positive cocci, presumptive MRSA. ASSESSMENT AND PLAN: A 53-year-old female status post distal pancreatectomy and splenectomy, now with possible phlegmon. Status post distal pancreatectomy and splenectomy. At this time, the patient seems to be making improvements. We did stop her Zosyn and put her on vancomycin. She seems to be doing okay. Her Kaden-Finley drain output has been decreasing. Will get a repeat CT scan today to evaluate for the fluid change. If she does not seem to have a bowel movement, will consider some milk of magnesia. cc: Aiden Jimenez MD
--- NOTE | 2019-05-19 09:05 | Diag Imaging Result Doc PS360 ---
EXAM: CT ABD/PELVIS W/PO AND IV CON 05/19/2019 HISTORY: follow up abdominal fluid collection TECHNIQUE: This exam was performed using automated exposure control, adjustment of mA or kV according to patient size, and/or use of iterative reconstruction technique. COMMENT: There is worsened atelectasis in the lower lobes compared to the previous study of 05/16/2019. There is pleural fluid bilaterally which was also not previously the case. The focus of fluid collection and possible fat necrosis which was seen in the anterior abdomen and upper pelvis on the previous examination just below the insertion site of the surgical drain has not really changed significantly since the previous study. There is no evidence of bowel obstruction. There is a fairly large amount of stool in the colon as there was previously. Slightly more subcutaneous edema is present in the left flank. Otherwise the appearance of the abdomen has not changed significantly. Pelvis: There is a small amount of free fluid in the cul-de-sac. This was also present at the time the previous study. The regional skeleton remains intact. IMPRESSION: Worsened bibasilar atelectasis and new small pleural effusions bilaterally. Fluid collections in the abdomen and pelvis essentially unchanged. Electronically signed by Isidro Beaulieu 05/19/2019 9:03 AM
[2019-05-19] MEDS: THYROID PO SCH ×2 (09:13→10:57)
[2019-05-19] MEDS: MIRALAX PO SCH ×2 (09:15→21:58)
[2019-05-19] MEDS: TYLENOL PO PRN (22:53)
[2019-05-20] MEDS: NS 1,000 ML IV SCH ×4 (03:57→20:20)
[2019-05-20] MEDS: THYROID PO SCH (06:34)
[2019-05-20] MEDS: VANCOMYCIN 1,650 MG in NS 250 ML IV SCH (06:36)
[2019-05-20] MEDS: MIRALAX PO SCH ×2 (09:25→20:20)
[2019-05-20] MEDS: DOXYCYCLINE PO SCH ×2 (09:25→20:20)
--- NOTE | 2019-05-20 13:06 | GENERAL SURGERY PROGRESS NOTE ---
DATE: 05/20/2019 SUBJECTIVE: The patient seems to be doing okay. Reviewed her CT scan. It seems to be overall stable. Triglycerides came back to be above 700 from her Kaden-Finley drain, suggesting the possibility of a Chyle leak. Otherwise, she is doing okay, tolerating a regular diet. OBJECTIVE: Vital Signs: The patient is currently afebrile. Her vital signs are stable. General: No acute distress. Cardiovascular: Regular rate and rhythm. Lungs: Grossly clear. Abdomen: Soft. Appropriately tender. STARR drain in place with 70 recorded out. MICROBIOLOGY: Microbiology shows Gram stain and culture from the abdomen of Staph epidermidis, which is sensitive to doxycycline, so will switch the patient over. ASSESSMENT AND PLAN: A 53-year-old female status post distal pancreatectomy and splenectomy with possible Chyle leak now. Postoperative state. At this time, will switch her over to doxycycline. Will put her on a low- fat diet, and will get nutrition and dietitian to see her for potential evaluation for diet modifications for her Chyle leak. At this time, will also check a CBC in the morning to see where her white blood cell count stands, and will keep her on doxycycline for now. cc: Aiden Jimenez MD
[2019-05-21] MEDS ORDERED: ULTRAM PO PRN (05:57)
[2019-05-21] MEDS: TYLENOL PO PRN (06:18)
[2019-05-21] MEDS: NS 1,000 ML IV SCH (06:19)
[2019-05-21] MEDS: THYROID PO SCH ×2 (07:33→11:23)
[2019-05-21 07:35] LABS: BASO# 0.03 X1000 (0.0-0.2); BASO% 0.3 % (0.0-0.8); EOS# 0.36 X1000 (0.0-0.7); EOS% 3.9 % (0.0-10.0); HEMATOCRIT 33.1 % (37.0-47.0); HEMOGLOBIN 10.6 g/dL (12.0-16.0); IMM GRAN# 0.04 X1000 (0.0-0.04); IMM GRAN% 0.4 % (0.0-0.5); LYMPH# 1.83 X1000 (1.2-3.4); LYMPH% 19.7 % (20.5-51.1); MCH 29.9 PG (27-31); MCV 93.2 FL (81-99); MONO# 0.93 X1000 (0.11-0.59); MPV 11.5 FL (7.4-10.4); NEUT# 6.12 X1000 (1.4-6.5); NEUT% 65.7 % (42.2-75.2); PLT 563 X1000 (130-400); RBC 3.55 XMIL (4.2-5.4); RDW 14.1 % (11.5-14.5); WBC 9.31 X1000 (4.8-10.8)
[2019-05-21] MEDS: MIRALAX PO SCH ×2 (08:51→20:42)
[2019-05-21] MEDS: DOXYCYCLINE PO SCH ×2 (08:51→20:42)
--- NOTE | 2019-05-21 15:20 | GENERAL SURGERY PROGRESS NOTE ---
DATE: 05/21/2019 SUBJECTIVE: Patient seems to be doing okay. She is feeling better. OBJECTIVE: VITAL SIGNS: Patient is currently afebrile, her vital signs stable.General: No acute distress. Cardiovascular: Regular rate, rhythm. Lungs: Clear. Abdomen: Soft, appropriately tender, STARR drain in place with 50 mL recorded out today. ASSESSMENT/PLAN: 53-year-old female status post distal pancreatectomy and splenectomy now with possible phlegmon. Status post distal pancreatectomy, splenectomy. At this time continue diet modification because she might have chyle leak, continue STARR drain. We switched over to doxycycline. Will recheck her white blood cell count today, may consider discharge in the near future. cc: Aiden Jimenez MD MTDD
[2019-05-22] MEDS: THYROID PO SCH ×2 (07:40→09:28)
[2019-05-22 08:47] VITALS: BP 117/80
[2019-05-22] MEDS: DOXYCYCLINE PO SCH (09:27)
[2019-05-22] MEDS: MIRALAX PO SCH (09:27)
--- NOTE | 2019-05-22 20:27 | GENERAL SURGERY PROGRESS NOTE ---
DATE: 05/22/2019 SUBJECTIVE: Doing well. He is tolerating diet. Bowel function soft. STARR drain remains milky but output is decreasing. LABS: White count now normal, yesterday at 9. ASSESSMENT/PLAN: 53-year-old female patient of Dr. Jimenez's who has an apparent chile leak after a distal pancreatectomy. She has been counseled on an appropriate diet for this. Output does seem to be decreasing, but it remains milky. We will keep her drain. She is on antibiotics, doxycycline, and I have given her a prescription for this. She will see Dr. Jimenez this week. Culture of the fluid did show Staph epidermidis, which is likely contaminant. Given her written instruction, detailed instructions, and drain care instructions. She will follow up with Dr. Jimenez this week in the office. cc: MD Aiden Santoyo MD
--- NOTE | 2019-05-26 03:50 | DISCHARGE SUMMARY ---
ADMISSION DATE: 05/15/2019 DISCHARGE DATE: 05/22/2019 ADMITTING DIAGNOSIS: Abdominal pain status post distal pancreatectomy and splenectomy. DISCHARGE DIAGNOSIS: Possible chyle leak. ADMITTING PHYSICIAN: Dr. Aiden Jimenez. CONSULTATIONS: None. PROCEDURES: None. BRIEF HISTORY AND COURSE OF STAY: Patient is a 53-year-old female who several weeks prior to admission had a distal pancreatectomy. Her initial postoperative course was uncomplicated. She had actually been seen in the office. We had left a drain in her abdomen. She had increasing abdominal pain, was brought to the emergency department. CT scans that showed a small fluid collection and she had what looked like milky drainage. She was admitted, started on antibiotics. It was felt that she had developed a Chyle leak. We did check triglycerides in the drain, it was over 700. She improved clinically. We put her on antibiotics to cover possible infection, but it looked like the bacteria growing was more contaminant than an actual infection. Regardless, we kept her on antibiotics. She continued to improve clinically to the day of discharge, where it was felt that she would be safe to be discharged home. Her drain output was very low each day. We did give her diet instructions for chyle leak with low fat, high-protein. We got the dietitian to see her. On the day of discharge, she was up and ambulating. Leukocytosis had improved. She was not febrile. She was tolerating diet and her Kaden-Finley drain output was decreased. Therefore, we made arrangements for her to go home. DISPOSITION: Home. DISCHARGE CONDITION: Stable. FOLLOW-UP INSTRUCTIONS: Patient told to follow up Dr. Jimenez in a week. cc: Aiden Jimenez MD
== END 2019-05-22 12:56 | disposition home or self-care (01) | DRG 921 ==
LOC: ED 22:20 → 4N 05-16 02:02
PROVIDERS: ADMIT Surgery; ATTEND Surgery
CPT/HCPCS: 71020; 71046; 74177; 80053; 81001; 82150; 82550; 83605; 84478; 84484; 85025; 85610; 85730; 87040; 87070; 87077; 87186; 94761; 96361; 96365; 99285; A9270; J2543; J3370; J7030; J7040; J7050; J7120; Q9967